=== PATIENT | male | born 1985 | race Caucasian/White ===

== ENCOUNTER 2023-04-05 21:49 | Emergency (ER) | payer SELFPAY ==
[2023-04-05] MEDS ORDERED: Ketorolac Tromethamine 30 MG/ML VIAL ONE (23:05)
[2023-04-05] MEDS ORDERED: Dexamethasone 10 MG/ML VIAL ONE (23:05)
== END 2023-04-06 00:36 | disposition home or self-care (01) ==
LOC: MADERS 21:49
DX: M54.50 Low back pain, unspecified (principal); F17.210 Nicotine dependence, cigarettes, uncomplicated
CPT/HCPCS: 72131; 96372; J1100; J1885